=== PATIENT | male | born 1990 | race Caucasian/White ===

== ENCOUNTER 2023-03-19 10:18 | Emergency (ER) | payer BC, SELFPAY ==
[2023-03-19 10:25] VITALS: BP 162/90; PULSE 112; RESP 18; TEMP 36.9; O2SAT 99
--- NOTE | 2023-03-19 10:49 | ED.MALEGU ---
HPI - Male Genitourinary General Chief complaint: Urogenital-Male Stated complaint: Urinary Problem History of Present Illness HPI Narrative: Patient presents for STD screening. Patient denies any exposure to STDs denies any symptoms. Patient is going through a divorce and states that his has been unfaithful in the past and just would like testing. Related Data Allergies Allergy/AdvReac Type Severity Reaction Status Date / Time Penicillins Allergy Unknown RASH Verified 01/07/17 16:57 Review of Systems Review of Systems: CONSTITUTIONAL: Denies fever, chills, or sweats. EYES: Denies visual changes, redness, or discharge. ENT: Denies rhinorrhea, congestion, sore throat, or otalgia. CARDIOVASCULAR: Denies chest pain, palpitations, or edema. RESPIRATORY: Denies cough or dyspnea. GASTROINTESTINAL: Denies abdominal pain, nausea, vomiting, or diarrhea. GENITOURINARY: Denies dysuria or hematuria. SKIN: Denies rash or itching. MUSCULOSKELETAL: Denies back pain, joint pain, or myalgia. NEUROLOGIC: Denies headache, numbness, or weakness. PSYCHIATRIC: Denies anxiety or depression. PMFSH Comments At time of signature, agree with nursing past medical, surgical, social and family history. There is no relevant family history pertinent to the presenting complaint Exam Narrative: GENERAL: Well-appearing, well-nourished, and in no acute distress. HEAD: Normocephalic, atraumatic. EYES: PERRLA and EOMI. ENT: Nares clear, no rhinorrhea or epistaxis. Mucous membranes moist. NECK: Supple. CHEST: Clear to auscultation. No respiratory distress. HEART: Regular rate and rhythm. No murmur heard. Normal peripheral pulses. ABDOMEN: Soft, nontender, nondistended, normal active bowel sounds. EXTREMITIES: Normal range of motion. No edema. SKIN: Warm, dry, no rash. NEURO: No focal deficits. Alert and oriented x3. Alicia Coma Scale Eye Opening: Spontaneous 4 Alicia Coma Scale Motor: Obeys Commands 6 Alicia Coma Scale Verbal: Oriented 5 Alicia Coma Scale Total 15 Course Course Level of Care: Express Care Visit Vital Signs Vital signs: Vital Signs Temperature 36.9 C 03/19/23 10:25 Pulse Rate 112 H 03/19/23 10:25 Respiratory Rate 18 03/19/23 10:25 Blood Pressure 162/90 H 03/19/23 10:25 Pulse Oximetry 99 03/19/23 10:25 Oxygen Delivery Room Air 03/19/23 10:25 Temperature 36.9 C 03/19/23 10:25 Pulse Rate 112 H 03/19/23 10:25 Respiratory Rate 18 03/19/23 10:25 Blood Pressure 162/90 H 03/19/23 10:25 Pulse Oximetry 99 03/19/23 10:25 Oxygen Delivery Room Air 03/19/23 10:25 My blood pressure Please YONI schedule a followup visit with your personal physician for further evaluation and treatment. Including recheck and discussion of your blood pressure. If your symptoms persist, change or worsen significantly before you can contact your personal physician then please, without delay, go to the emergency department for further evaluation Discussed with patient results will not be known for 48 hours. Since there is no positive exposure will wait and treat if any of the tests are positive. Patient agreeable with plan of care. MDM - Male Genitourinary Lab Data Labs: Urine Glucose Negative Reference Range: Negative Urine Bilirubin Negative Reference Range: Negative Urine Ketone Negative Reference Range: Negative Urine Specific [place] 1.020 Reference Range:1.001-1.035 Urine Blood Negative Reference Range: Negative * * Urine pH 7.0 Reference Range: 5.0-9.0*
[2023-03-19 15:38] LABS: Trichomonas Vag PCR NOT DETECTED (NOT DETECTE)
[2023-03-19 16:00] LABS: Chlamydia trachomatis NOT DETECTED (NOT DETECTE); Neisseria gonorrhoeae PCR NOT DETECTED (NOT DETECTE)
== END 2023-03-19 10:58 | disposition home or self-care (01) ==
PROVIDERS: Emergency Provider Nurse Practitioner Family
DX: Z11.3 Encounter for screening for infections with a predominantly sexual mode of transmission (principal)
CPT/HCPCS: 81003; 87491; 87591; 87661; 99203; G0463